=== PATIENT | female | born 1970 | race Caucasian/White ===

== ENCOUNTER 2017-01-29 04:53 | Emergency (ER) | payer OTHER ==
[~2017-01-29] VITALS: Ht 165.1 cm; Wt 98.9 kg
[2017-01-29 04:59] VITALS: BP_SYST 137
--- NOTE | 2017-01-29 05:03 | NUR ---
Patient to ER bed 5 to gown for evaluation. Side rails up. Report given to Vadim SALVADOR.
--- NOTE | 2017-01-29 05:14 | NUR ---
ER MD Glassaw at bedside for evaluation
--- NOTE | 2017-01-29 05:25 | NUR ---
Patient arrived to ED a/o x 4 with c/o bilateral lower quadrant ABD pain radiating to back since yesterday. Patient reports onset of sharp 7/10 pain that has not eased with rest. ABD is non-tender to touch. Reports nausea w/o vomiting. States she feels hot. No fever at this time. Patient reports no change in bowel habits. Denies urine changes. BS present x 4 quadrants. Appears in acute pain. Will continue to monitor.
[2017-01-29] MEDS ORDERED: NACL 0.9% 1,000 ML IV ONE (05:30)
[2017-01-29] MEDS ORDERED: ONDANSETRON HCL 4 MG/2 ML VIAL IVP ONE (05:30)
[2017-01-29] MEDS ORDERED: MORPHINE 4 MG/ML INJ. SYRINGE IVP ONE (05:30)
--- NOTE | 2017-01-29 05:30 | NUR ---
# 20 gauge angiocath placed to right ac. Use of asceptic technique. Opsite placed over site. Blood return noted. Blood for lab drawn from site. Flushed with 10 cc of normal saline. No evidence of infiltration noted. Patient tolerated well.
[2017-01-29 05:39] LABS: BASOPHILS # (AUTO) 0.1 K/uL (0.0-0.2); BASOPHILS % (AUTO) 0.6 % (0.0-2.0); EOSINOPHILS % (AUTO) 0.2 % (0.0-4.0); HEMATOCRIT 38.1 % (36-48); HEMOGLOBIN 12.5 g/dL (12.0-16.0); LYMPHOCYTES # (AUTO) 1.6 K/uL (1.0-5.5); MEAN CORPUSCULAR HEMOGLOBIN 27 pg (27-31); MEAN CORPUSCULAR HGB CONC 33 % (32-36); MEAN CORPUSCULAR VOLUME 83 fL (79.0-98.0); MONOCYTES # (AUTO) 0.6 K/uL (0.0-1.0); MONOCYTES % (AUTO) 5.1 % (1.7-9.3); NEUTROPHILS # (AUTO) 8.8 K/uL (1.8-7.7); NEUTROPHILS % (AUTO) 80.1 % (40.0-70.0); PLATELET COUNT (AUTO) 217 K/uL (130-430); RED BLOOD CELL COUNT(AUTO) 4.58 MIL/uL (4.2-6.2); RED CELL DISTRIBUTION WIDTH 12.9 % (9.0-15.0); WHITE BLOOD COUNT (AUTO) 11.1 K/uL (4.8-10.8)
[2017-01-29 05:42] LABS: BILIRUBIN,URINE NEGATIVE (NEGATIVE); BLOOD, URINE 3+ (NEGATIVE); CLARITY/URINE CLOUDY (CLEAR); COLOR,URINE YELLOW (YELLOW); GLUCOSE,URINE NEGATIVE (NEGATIVE); KETONES,URINE NEGATIVE (NEGATIVE); LEUKOCYTE ESTERASE ,URINE NEGATIVE (NEGATIVE); NITRITE, URINE NEGATIVE (NEGATIVE); PROTEIN URINE TRACE (NEGATIVE)
--- NOTE | 2017-01-29 05:47 | NUR ---
Patient transported off unit via wheelchair for ultrasound.
[2017-01-29 05:49] LABS: CALCIUM 8.7 mg/dL (8.4-11.0); CREATININE 0.79 mg/dL (0.55-1.30)
[2017-01-29 05:53] LABS: ALBUMIN 3.6 g/dL (3.4-4.8); TOTAL BILIRUBIN 0.3 mg/dL (0.0-1.0); TOTAL PROTEIN, SERUM 7.4 g/dL (6.4-8.3)
--- NOTE | 2017-01-29 06:01 | NUR ---
Patient returned to unit from ultrasound via wheelchair.
[2017-01-29 06:06] LABS: BACTERIA,URINE FEW /HPF (None Seen); RBC,URINE 0-3 /HPF (0-3); WBC,URINE 0-3 /HPF (0-3)
[2017-01-29 06:08] LABS: MUCUS,URINE None Seen /LPF (None Seen); URINE AMORPHOUS PHOSPHATES 3+ /HPF (None Seen)
--- NOTE | 2017-01-29 06:50 | NUR ---
ED MD Glassaw at bedside for reassessment.
[2017-01-29 07:01] VITALS: BP_SYST 132
--- NOTE | 2017-01-29 07:03 | NUR ---
Patient given written and verbal discharge instructions and verbalizes understanding. ER MD discussed with patient the results and treatment provided. Patient in stable condition. ID arm band removed. IV catheter removed intact and dressing applied, no active bleeding. Rx of tramadol and cipro given. Patient educated on pain management and to follow up with PMD. Pain Scale 2/10 tolerable for patient. Opportunity for questions provided and answered.
== END 2017-01-29 07:03 | disposition home or self-care (01) ==
LOC: SED 04:53
DX: K80.80 Other cholelithiasis without obstruction (principal); N39.0 Urinary tract infection, site not specified; R03.0 Elevated blood-pressure reading, without diagnosis of hypertension; E66.9 Obesity, unspecified; Z68.36 Body mass index [BMI] 36.0-36.9, adult
CPT/HCPCS: 36415; 76700; 80053; 81000; 81025; 82150; 83690; 85025; 96361; 96374; 96375; 99285; J2270; J2405; J7030

== ENCOUNTER 2024-02-06 16:02 | Emergency (ER) | payer BC, OTHER ==
[~2024-02-06] VITALS: Ht 165.1 cm; Wt 86.6 kg
[2024-02-06 16:23] VITALS: BP_SYST 132; PULSE 100; RESP 19; TEMP 97.2; O2SAT 97
[2024-02-06] MEDS: KETOROLAC TROMETHAMINE 60 MG/2 ML VIAL IM ONE (17:18)
[2024-02-06] MEDS: ONDANSETRON 4 MG ODT TAB PO ONE (19:09)
[2024-02-06] MEDS: MORPHINE 4 MG INJ. 4 MG/ML VIAL IM ONE (19:13)
[2024-02-06] MEDS ORDERED: HYDR-3927 PO (19:53)
[2024-02-06] MEDS ORDERED: DICL75TA5 PO (19:53)
[2024-02-06 20:10] VITALS: BP_SYST 115; PULSE 80; RESP 16; TEMP 98.3; O2SAT 95
== END 2024-02-06 20:10 | disposition home or self-care (01) ==
LOC: SED 16:02
DX: M54.32 Sciatica, left side (principal); M51.37 Other intervertebral disc degeneration, lumbosacral region; M25.552 Pain in left hip
CPT/HCPCS: 99285; 72131; 73502; 96372; Q0162; J1885; J2270

== ENCOUNTER 2024-03-29 16:26 | Emergency (ER) | payer BC ==
[~2024-03-29] VITALS: Ht 165.1 cm; Wt 83.9 kg
[~2024-03-29 16:26] MED LIST: DICL75TA5 PO; HYDR-3927 PO
[2024-03-29 16:41] VITALS: BP_SYST 157; PULSE 117; RESP 18; TEMP 98.3; O2SAT 97
[2024-03-29] MEDS: ONDANSETRON 4 MG ODT TAB PO ONE (17:44)
[2024-03-29] MEDS: MORPHINE SULFATE 10 MG/ML VIAL IM ONE (17:44)
[2024-03-29] MEDS ORDERED: PRED20TA PO (18:13)
[2024-03-29] MEDS ORDERED: HYDR-3927 PO (19:14)
[2024-03-29] MEDS: predniSONE 20 MG TABLET PO ONE (19:15)
[2024-03-29 19:23] VITALS: BP_SYST 126; PULSE 82; RESP 18; TEMP 98.2; O2SAT 98
== END 2024-03-29 19:23 | disposition home or self-care (01) ==
LOC: SED 16:26
DX: M54.32 Sciatica, left side (principal); Z79.899 Other long term (current) drug therapy; Z79.2 Long term (current) use of antibiotics
CPT/HCPCS: 99283; 96372; Q0162; J7512; J2270

== ENCOUNTER 2024-03-31 09:05 | Emergency (ER) | payer BC ==
[~2024-03-31] VITALS: Ht 165.1 cm; Wt 83.9 kg
[~2024-03-31 09:05] MED LIST changes: +PRED20TA PO
[2024-03-31 09:12] VITALS: BP_SYST 120; PULSE 86; RESP 16; TEMP 97; O2SAT 99
[2024-03-31] MEDS: ONDANSETRON 4 MG ODT TAB PO ONE (10:06)
[2024-03-31] MEDS: MORPHINE 4 MG INJ. 4 MG/ML VIAL IVP ONE (10:07)
[2024-03-31] MEDS: MORPHINE 4 MG INJ. 4 MG/ML VIAL IM ONE (11:00)
== END 2024-03-31 11:14 | disposition home or self-care (01) ==
LOC: SED 09:05
DX: G89.29 Other chronic pain (principal); M54.50 Low back pain, unspecified; Z79.899 Other long term (current) drug therapy; Z79.2 Long term (current) use of antibiotics
CPT/HCPCS: 99284; 96374; 96372; Q0162; J2270